=== PATIENT | female | born 1965 | race Caucasian/White ===

== ENCOUNTER 2017-01-06 11:33 | Outpatient (CLI) | payer OTHER | END 2017-01-06 11:34 | LOC: LAB 11:33 | PROVIDERS: ATTEND Family Medicine | DX: E03.9 Hypothyroidism, unspecified (principal) | CPT/HCPCS: 36415; 84443 ==

== ENCOUNTER 2017-04-01 10:40 | Outpatient (CLI) | payer OTHER | END 2017-04-01 10:42 | LOC: LABRHC 10:40 | PROVIDERS: ATTEND Physician Assistant | DX: R10.2 Pelvic and perineal pain (principal) | CPT/HCPCS: 87086 ==

== ENCOUNTER 2017-12-04 16:41 | Outpatient (CLI) | payer OTHER | END 2017-12-04 16:45 | LOC: LABRHC 16:41 | PROVIDERS: ATTEND Family Medicine | DX: R30.0 Dysuria (principal) | CPT/HCPCS: 87086 ==

== ENCOUNTER 2018-01-22 16:15 | Emergency (ER) | payer OTHER ==
[2018-01-22 16:29] VITALS: BP 181/98
--- NOTE | 2018-01-22 16:50 | ED Physician Documentation ---
Female Urogenital Problems - HISTORIAN Historian: patient - HPI Stated Complaint: Vaginal bleeding Chief Complaint: General Adult Additional Information: Heavy vaginal/menstrual bleeding to day with low abdominal cramping and low back ache. Has been soaking a pad every 30-90 minutes throughout the day. LNMP prior to day was about two months ago. Had very light period in December. , 4 sp ab's, one D&C. Has antiphospholipid antibody. - Vaginal Bleeding Description of Menstrual: denies: post-menopause - Associated Symptoms Urinary Symptoms: none - ROS CONST: none - PAST HX Past History: other (see above) Other History: other (scoliosis, hypothyroid) Surgeries/Procedures: other (hernia, D&C) Allergies/Adverse Reactions: Allergies Allergy/AdvReac Type Severity Reaction Status Date / Time Penicillins AdvReac Unknown Hives Verified 01/22/18 16:30 Sulfa (Sulfonamide AdvReac Unknown Hives Verified 01/22/18 16:30 Antibiotics) Home Medications: Ambulatory Orders Medication Instructions Recorded Nitrofurantoin Monohyd/M-Cryst 100 mg PO Q12H #14 capsule 01/22/18 [Macrobid 100 mg Capsule] - SOCIAL HX Smoking History: non-smoker - FAMILY HX Family History: other (DM) - VITAL SIGNS Vital Signs: Vital Signs Temp Pulse Resp BP Pulse Ox 98.6 F 93 H 17 181/98 98 01/22/18 16:25 01/22/18 16:25 01/22/18 16:25 01/22/18 16:25 01/22/18 16:25 - REVIEWED ASSESSMENTS Nursing Assessment Reviewed: Yes Vitals Reviewed: Yes Progress - Progress Progress: 1740, discussed patient with Dr. Vázquez. Will defer any treatment of dysfunctional uterine bleeding to Dr. New. ED Results Lab/Radiology - Orders Orders: ED Orders Category Date Time Status Place IV Lock 1T Care 01/22/18 16:39 Ordered CBC/PLATELET/DIFF Routine Lab 01/22/18 Ordered CMP Routine Lab 01/22/18 Ordered HCG QUANTITATIVE Routine Lab 01/22/18 Ordered URINALYSIS Routine Lab 01/22/18 Ordered URINE HCG [URINE HCG] Stat Lab 01/22/18 Uncollected Female Urogenital Problems - EXAM General Appearance: alert, mild distress EENT: eye inspection normal, ENT inspection normal Neck: nml inspection Respiratory: breath sounds nml CVS: reg rate & rhythm, heart sounds normal Abdomen: soft, non-tender, no organomegaly, no distention, nml bowel sounds Pelvic: external exam nml, speculum exam nml (cervix closed), blood in vaginal vault, bimanual exam nml Back: non-tender, painless ROM, other (thoracolumbar scoliosis). No: vertebral point-tendernes, CVA tenderness Skin: color nml, no rash, warm,dry Extremities: normal range of motion, no evidence of injury Neuro: CN's nml as tested, motor nml, sensation nml, cognition normal Discharge Clincal Impression: Dysfunctional uterine bleeding Prescriptions: Nitrofurantoin Monohyd/M-Cryst [Macrobid 100 mg Capsule] 100 mg PO Q12H #14 capsule Referrals: Coral New MD [Primary Care Provider] - 2 Days Additional Instructions: See Dr. New tomorrow. Return to the ER if you are soaking more than one pad per hour. Condition: Fair Disposition: 01 HOME, SELF-CARE Decision to Admit: NO Decision Time: 19:44
[2018-01-22 17:08] LABS: BASOPHILS % 0.4 (0.0-1.5); EOSINOPHILS % 2.2 % (0.0-6.8); MEAN CORPUSCULAR HEMOGLOBIN 30.7 pg (28.0-34.0); MEAN CORPUSCULAR VOLUME 89.2 fl (80.0-100.0); MONOCYTES % 3.7 % (0.0-11.0); NEUTROPHILS # 6.4 # k/uL (1.4-7.7)
[2018-01-22 17:17] LABS: eGFR (African) > 60; eGFR (Non-African) > 60
[2018-01-23 08:05] LABS: APPEARANCE,URINE CLOUDY (CLEAR); COLOR,URINE RED (YELLOW); OCCULT BLOOD,URINE 3+ (NEGATIVE)
== END 2018-01-22 17:55 | disposition home or self-care (01) ==
LOC: ED 16:15
DX: N93.8 Other specified abnormal uterine and vaginal bleeding (principal)
CPT/HCPCS: 80053; 81002; 84702; 85025; 87086; S1016

== ENCOUNTER 2018-01-23 11:38 | Outpatient (CLI) | payer OTHER ==
[2018-01-22 16:29] VITALS: BP 181/98
[2018-01-23 12:00] LABS: BASOPHILS % 0.6 (0.0-1.5); EOSINOPHILS % 3.6 % (0.0-6.8); MEAN CORPUSCULAR VOLUME 91.1 fl (80.0-100.0); MONOCYTES % 4.8 % (0.0-11.0); NEUTROPHILS # 3.8 # k/uL (1.4-7.7)
== END 2018-01-23 11:43 ==
LOC: LAB 11:38
PROVIDERS: ATTEND Family Medicine
DX: E03.9 Hypothyroidism, unspecified (principal); N93.8 Other specified abnormal uterine and vaginal bleeding
CPT/HCPCS: 36415; 84443; 85025

== ENCOUNTER 2018-05-28 08:53 | Outpatient (CLI) | payer OTHER ==
[2018-05-28 09:30] LABS: eGFR (Non-African) > 60
== END 2018-05-28 08:58 | disposition home or self-care (01) ==
LOC: LAB 08:53
PROVIDERS: ATTEND Family Medicine
DX: I10 Essential (primary) hypertension (principal)
CPT/HCPCS: 36415; 80048

== ENCOUNTER 2018-12-26 07:02 | Observation (INO) | payer OTHER ==
[2018-12-26] MEDS ORDERED: ASPIRIN 81 MG CHEW TAB ONE (07:08)
[2018-12-26] MEDS ORDERED: NORMAL SALINE 500 ML IV.SOLN IV ONE (07:08)
[2018-12-26] MEDS ORDERED: NORMAL SALINE 1,000 ML IV.SOLN IV ONE ×2 (11:10→20:30)
[2018-12-26] MEDS ORDERED: PANTOPRAZOLE SODIUM 40 MG TABLET.DR ONE (11:10)
[2018-12-26] MEDS ORDERED: MECLIZINE HCL 25 MG TABLET PO ONE (20:30)
[2018-12-27] MEDS ORDERED: PANTOPRAZOLE SODIUM 40 MG TABLET.DR ONE (07:08)
[2018-12-27] MEDS ORDERED: MECLIZINE HCL 25 MG TABLET PO ONE (07:08)
[2019-01-04 18:11] LABS: eGFR (Non-African) > 60
[2019-01-04 18:12] LABS: SEGMENTED NEUTROPHILS % 55 % (39-79)
--- NOTE | 2019-02-24 16:19 | Diagnostic Imaging Report ---
JOSÉ MANUEL MACKENZIE ED [facility] [address] [facility].[address] [address] Report Submission Date: Dec 26, 2018 8:08:45 AM CDT Patient Study Name: TORITO SHAY Date: Dec 26, 2018 7:53:10 AM CDT Modality Type: DX Gender: F Description: CHEST 2VIEW : 69 Institution: [facility] Physician: JOSÉ MANUEL MACKENZIE ED HISTORY: 53-year-old female with chest pain and tightness. COMPARISON: None available TECHNIQUE: 2 views of the chest were performed. FINDINGS: No pneumothorax, consolidative infiltrates, pleural effusions, or pulmonary edema. The heart is not enlarged. There is S-shaped thoracolumbar scoliosis which is convex right in the mid thoracic spine and convex left in the thoracolumbar junction. IMPRESSION: No acute intrathoracic process. Electronically signed on Dec 26, 2018 8:08:45 AM CDT by: Ezra POWER
== END 2018-12-27 08:20 | disposition home or self-care (01) ==
LOC: ED 07:02 → UNDOADMOB 09:40 → SOUTH 09:40 → UNDODISOB 12-27 08:20
PROVIDERS: ADMIT Family Medicine; ATTEND Family Medicine
DX: R07.89 Other chest pain (principal)
CPT/HCPCS: 36415; 71020; 80053; 82550; 82553; 84439; 84443; 84484; 85025; 93005; 99234; G0378; J7060; 99283; J7030; S1016

== ENCOUNTER 2019-07-13 10:31 | Outpatient (CLI) | payer OTHER ==
--- NOTE | 2019-07-13 20:37 | Diagnostic Imaging Report ---
PATIENT MR#: [id number] PATIENT PATIENT NAME: TORITO SHAY DATE OF : 1965 REFERRING PHYSICIAN: Loy Vázquez EXAM DATE: 07/13/2019 ACCESSION NUMBER: [id number] EXAM DESCRIPTION: HAND 3 VIEWS OR MORE CLINICAL HISTORY: PAIN IN THE FIFTH DIGIT AFTER SMASHING IT IN A DOOR 3 WEEKS AGO COMPARISON: No study for comparison is available at the time of interpretation. TECHNIQUE: DX right hand, 3 views Osseous structures: On lateral view, there is a minute 0.5 mm ossific density dorsal to the 5th DIP j oint. Joint spaces: The bones are well aligned, without dislocation. No articular surface abnormality is no rico. Soft tissues: There is normal appearance of the soft tissues with no radiopaque foreign body seen. IMPRESSION: Minute 0.5 mm ossific density dorsal to the 5th DIP joint. If the patient has point tende rness at this location, this may represent a small avulsion fracture from base of the 5th distal phalanx. Alternate ly, calcification in this location can be due to degenerative change within the extensor tendon. Read by: Dr. Abran Monae Transcribed by: Abran Monae Transcribed Date: 07/13/2019 8:36:35 PM Electronically signed by: Dr. Abran Monae Date signed: 07/13/2019 8:36:35 PM
== END 2019-07-13 10:41 ==
LOC: RAD 10:31
PROVIDERS: ATTEND Family Medicine
DX: M79.644 Pain in right finger(s) (principal)